=== PATIENT | male | born 1985 | race Caucasian/White ===

== ENCOUNTER 2020-09-28 21:01 | Emergency (ER) | payer MEDICAID, OTHER ==
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
[2020-09-28 22:25] LABS: CHLORIDE,CL 102 mmol/L (98-107); SODIUM,NA 138 mmol/L (136-145)
[2020-09-28 22:26] LABS: ANION GAP 13.7 mmol/L (10-20)
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
== END 2020-09-28 23:00 | disposition home or self-care (01) ==
LOC: VM.ED 21:01
DX: Z04.1 Encounter for examination and observation following transport accident (principal); V48.6XXA Car passenger injured in noncollision transport accident in traffic accident, initial encounter
CPT/HCPCS: 36415; 71045; 72040; 80053; 85025; 85610; 99283; 99284-25